=== PATIENT | female | born 1955 | race Caucasian/White ===

== ENCOUNTER → 2017-05-06 | Outpatient (CLI) | payer OTHER ==
[2017-05-06 15:02] LABS: Blood Urea Nitrogen 11 mg/dL (7-17); Non-African American GFR(MDRD) >60 (>60 ml/min/1.73 sqM)
--- NOTE | 2017-05-06 16:11 | CT ---
EXAMINATION TYPE: CT angio thoracic/abd aorta DATE OF EXAM: 05/06/2017 COMPARISON: Previous exam 05/19/2016 HISTORY: Follow-up aneurysm. History of stent. CT DLP: 1075.90 mGycm. Automated Exposure Control for Dose Reduction was Utilized. CONTRAST: CT scan of the thorax, abdomen and pelvis is performed without and with IV Contrast, patient injected with 100 mL of Omnipaque 350. Three-dimensional reconstructions performed on an alternate workstatio n. FINDINGS: LUNGS: The lungs are grossly clear, there is no concerning parenchymal mass or nodule identified. Em physematous changes are again noted within the lungs. There is no pleural effusion or pneumothorax se en. The tracheobronchial tree is patent. MEDIASTINUM: There are no greater than 1 cm hilar or mediastinal lymph nodes. No pericardial effusi on is seen. Pulmonary artery is markedly dilated as on previous exam measuring approximately 5.2 cm in greatest transverse dimension. The aortic stent is in place, there is no evident aneurysm in the a scending aorta. Descending aorta measures approximately 3.9 cm in its proximal aspect similar to prev ious exam. Supraaortic branch vessels are patent. At the level of the distal aspect of the stent near the aortic hiatus, the aorta measures approximately 3.9 cm which may be slightly increased by approx imately 4 mm. No evident aneurysm within the abdomen. Mesenteric vessels, renal arteries, common caryn c arteries are patent. Internal and external iliac, deep femoral, proximal superficial and common fem oral arteries are patent. OTHER: No significant interval change IMPRESSION: There may be some slight interval growth of the aortic diameter at the level of the aorti c hiatus as described.
== END | disposition home or self-care (01) ==
LOC: RADCTMAIN 14:29
PROVIDERS: ATTEND Internal Medicine Cardiovascular Disease
DX: I71.2 Thoracic aortic aneurysm, without rupture (principal)
CPT/HCPCS: 82565; 84520; 75635; 71275; 36415; Q9967

== ENCOUNTER 2019-05-16 15:54 | Emergency (ER) | payer OTHER ==
[2019-05-16 16:08] VITALS: BP 135/85; PULSE 79; RESP 18; TEMP 97.8
--- NOTE | 2019-05-16 16:28 | ED ---
Lower Extremity Injury HPI - General Chief Complaint: Extremity Injury, Lower Stated Complaint: rt foot pain Time Seen by Provider: 05/16/19 16:15 Source: patient, RN notes reviewed Mode of arrival: ambulatory Limitations: no limitations - History of Present Illness Initial Comments: 63-year-old female presents emergency Department with chief complaint of right foot pain. Patient states she woke up Thursday morning felt that she stepped on something. Patient had pain at her second digit. Patient states that she's had increase in swelling or redness that it pertains her first second third digit along with the area just proximal to her digits. Patient states that she's never had any like this in the past patient has no history of gout. Patient denies any trauma denies being diabetic no fevers or chills. Patient states it is painful between her first and second digit. - Related Data Home Medications Medication Instructions Recorded Confirmed ARIPiprazole [Abilify] 5 mg PO DAILY 05/16/19 05/16/19 Lisinopril [Zestril] 10 mg PO DAILY 05/16/19 05/16/19 Previous Rx's Medication Instructions Recorded Cephalexin [Keflex] 500 mg PO Q6HR #40 cap 05/16/19 Allergies Allergy/AdvReac Type Severity Reaction Status Date / Time No Known Allergies Allergy Verified 05/16/19 16:08 Review of Systems ROS Statement: Those systems with pertinent positive or pertinent negative responses have been documented in the HPI. ROS Other: All systems not noted in ROS Statement are negative. Past Medical History Past Medical History: Hypertension Additional Past Medical History / Comment(s): Sent in aorta History of Any Multi-Drug Resistant Organisms: None Reported Past Surgical History: Adenoidectomy, Cholecystectomy, Tubal Ligation Past Psychological History: Depression Smoking Status: Current every day smoker Past Alcohol Use History: Occasional Past Drug Use History: None Reported General Exam Limitations: no limitations General appearance: alert, in no apparent distress Head exam: Present: atraumatic, normocephalic, normal inspection Respiratory exam: Present: normal lung sounds bilaterally. Absent: respiratory distress, wheezes, rales, rhonchi, stridor Cardiovascular Exam: Present: regular rate, normal rhythm, normal heart sounds. Absent: systolic murmur, diastolic murmur, rubs, gallop, clicks Extremities exam: Present: other (Right foot there is erythema just proximal digits 1 through 3 with erythema mostly pertaining to the second and third digit there is tenderness of this area also equal bilaterally no proximal foot tenderness) Neurological exam: Present: alert Skin exam: Present: warm, dry, intact Course Vital Signs 05/16/19 16:04 Temperature 97.8 F Pulse Rate 79 Respiratory 18 Rate Blood Pressure 135/85 O2 Sat by Pulse 98 Oximetry Medical Decision Making - Medical Decision Making 63-year-old female presented emergency apartment for right foot pain and swelling. Patient has no evidence of fracture there is no open wounds or sores other areas erythematous and warm to touch. This is consistent with cellulitis. Patient has no history gout. Patient will be started on Keflex with close follow-up in 24 hours return for any worsening symptoms. Disposition Clinical Impression: Cellulitis of right foot Disposition: HOME SELF-CARE Condition: Stable Instructions (If sedation given, give patient instructions): Cellulitis (ED) Additional Instructions: Please return to the Emergency Department if symptoms worsen or any other concerns. Prescriptions: Cephalexin [Keflex] 500 mg PO Q6HR #40 cap Is patient prescribed a controlled substance at d/c from ED?: No Referrals: Jerel Mendez MD [Primary Care Provider] - 1-2 days Time of Disposition: 16:53
--- NOTE | 2019-05-16 16:43 | XR ---
EXAMINATION TYPE: XR foot complete RT DATE OF EXAM: 05/16/2019 COMPARISON: NONE HISTORY: Foot pain TECHNIQUE: 3 views FINDINGS: I see no acute fracture nor dislocation. I see no focal bone destruction. There is some sof t tissue swelling of the forefoot. IMPRESSION: Forefoot soft tissue swelling. No fracture. No specific sign of osteomyelitis.
[2019-05-16] MEDS ORDERED: ACET/COD 300 MG/30 MG STARTER PACK 6 TAB BTL PO STA (16:53)
== END 2019-05-16 17:03 | disposition home or self-care (01) ==
LOC: EC 15:54
DX: L03.115 Cellulitis of right lower limb (principal); I10 Essential (primary) hypertension; F32.9 Major depressive disorder, single episode, unspecified; F17.200 Nicotine dependence, unspecified, uncomplicated; Z79.899 Other long term (current) drug therapy
CPT/HCPCS: 99283

== ENCOUNTER → 2019-08-20 | Outpatient (CLI) | payer OTHER | END | disposition home or self-care (01) | LOC: RADCTMAIN 10:44 | PROVIDERS: ATTEND Family Medicine | DX: Z53.9 Procedure and treatment not carried out, unspecified reason (principal) ==

== ENCOUNTER → 2019-08-22 | Outpatient (CLI) | payer OTHER ==
--- NOTE | 2019-08-23 06:58 | CT ---
EXAMINATION TYPE: CT angio chest DATE OF EXAM: 08/22/2019 COMPARISON: CTA May 06, 2017 and older studies. HISTORY: chest pain follow up stents CT DLP: 1293 mGycm. Automated Exposure Control for Dose Reduction was Utilized. CONTRAST: CTA scan of the thorax is performed with IV Contrast, patient injected with 100 mL of Isovue 370, pul monary embolism protocol. Three-D reconstructed images are created on a independent workstation and r eviewed. FINDINGS: LUNGS: Bilateral mild to moderate underlying emphysematous change with [id number] parenchymal f ibrotic changes in the lung bases. No suspicious acute groundglass opacity or consolidation. No pleur al effusion or pneumothorax. Tracheobronchial tree is patent. MEDIASTINUM: There is satisfactory enhancement of dilated central pulmonary arteries. There is stent graft beginning at level of the aortic arch shortly after left subclavian takeoff extending almost to the level of diaphragmatic hiatus through ectatic and aneurysmal descending thoracic aorta. Ascendin g aorta measures up to 3.8 cm in diameter. There is good filling or patency of stent graft without lira spicious extraluminal enhancement. There are more prominent but subcentimeter scattered mediastinal l ymph nodes which is nonspecific. For reference right tracheobronchial lymph node measures 10 x 9 mm a xial image 25. Stable calcified subcarinal lymph nodes. No cardiomegaly or pericardial effusion is s een. Mild to moderate biatrial dilatation remains present. OTHER: No additional significant abnormality is seen. IMPRESSION: Persistent massively enlarged pulmonary arteries. Persistent patent stent graft through 3 .9 cm aneurysm of the descending aorta. Background chronic parenchymal change without acute pulmonary process. No significant change from most recent CT.
== END | disposition home or self-care (01) ==
LOC: RADCTMAIN 16:56
PROVIDERS: ATTEND Family Medicine
DX: I25.10 Atherosclerotic heart disease of native coronary artery without angina pectoris (principal)
CPT/HCPCS: 71275; Q9967

== ENCOUNTER → 2019-09-13 | Outpatient (CLI) | payer OTHER ==
--- NOTE | 2019-09-14 11:00 | ECHOF ---
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 This was a technically good study. LV size, wall thickness and systolic function are normal, with an EF greater than 55%. The left liz tricular size is normal. Overall left ventricular systolic function is normal with, an EF between 5 5 - 60 %. The right ventricle is normal in size. The left atrium is moderately dilated. LA is moderately dilated 34-39 ml/m2 The right atrial size is normal. There is mild aortic valve sclerosis. There is no evidence of aortic regurgitation. Mild mitral annular calcification present. Mild mitral regurgitation is present. Mild tricuspid regurgitation present. Right ventricular systolic pressure is normal at < 35 mmHg. There is no evidence of pulmonary hypertension. Moderate pulmonic regurgitation. Pulmonary Artery Dilatation measures 5.6cm. The aortic root size is normal. There is no pericardial effusion. CONCLUSIONS -------- 1. Sinus rhythm. 2. This was a technically good study. 3. LV size, wall thickness and systolic function are normal, with an EF greater than 55%. 4. The left ventricular size is normal. 5. Overall left ventricular systolic function is normal with, an EF between 55 - 60 %. 6. The right ventricle is normal in size. 7. The left atrium is moderately dilated. 8. LA is moderately dilated 34-39 ml/m2 9. The right atrial size is normal. 10. There is mild aortic valve sclerosis. 11. There is no evidence of aortic regurgitation. 12. Mild mitral annular calcification present. 13. Mild mitral regurgitation is present. 14. Mild tricuspid regurgitation present. 15. Right ventricular systolic pressure is normal at < 35 mmHg. 16. There is no evidence of pulmonary hypertension. 17. Moderate pulmonic regurgitation. 18. Pulmonary Artery Dilatation measures 5.6cm. 19. The aortic root size is normal. 20. There is no pericardial effusion. GEAR INSPECTOR: Sybil Agudelo RDCS
== END | disposition home or self-care (01) ==
LOC: RADECHMAIN 16:22
PROVIDERS: ATTEND Family Medicine
DX: I08.3 Combined rheumatic disorders of mitral, aortic and tricuspid valves (principal); I28.1 Aneurysm of pulmonary artery
CPT/HCPCS: 93306

== ENCOUNTER → 2020-10-04 | Outpatient (CLI) | payer OTHER ==
--- NOTE | 2020-10-04 15:49 | BD ---
EXAMINATION TYPE: Axial Bone Density DATE OF EXAM: 10/04/2020 COMPARISON: NONE CLINICAL HISTORY: 65 YR OLD FEMALE.....ICD-10 CODE: M85.80 DISORDER OF BONE Height: 65 Weight: 186 FRAX RISK QUESTIONS: Glucocorticoids (More than 3mos): YES (Ex: prednisone, prednisolone, methylprednisolone, dexamethasone, and hydrocortisone). Current Tobacco Use: YES RISK FACTORS HISTORY OF: Postmenopausal woman: YES, 54 YR OLD Hyperparathyroidism: NO Adrenal Insufficiency: NO MEDICATIONS: Prednisone or other steroids: YES, FOR COPD, YES, FOR SINUSES PREDNISONE. How Long: FOR MANY YRS Additional Medications: BP MEDS, FETIZMA, STATIN FOR CHOLESTEROL, VIT D Additional History: HYPERTENSION, CHOLESTEROL, EXAM MEASUREMENTS: Bone mineral densitometry was performed using the [employer] System. Bone mineral density as measured about the Lumbar spine is: ----- L1-L4(G/cm2): 1.150 T Score Values are as follows: ----- L1: -0.7 ----- L2: -1.2 ----- L3: 0.7 ----- L4: -0.1 ----- L1-L4: -0.2 Bone mineral density FIRST DEXA STUDY AT [facility] Bone mineral density about the R hip (g/cm2): 0.929 Bone mineral density about the L hip (g/cm2): 0.875 T Score values are as follows: -----R Neck: -0.8 -----L Neck: -1.0 -----R Total: -0.6 -----L Total: -1.1 Bone mineral density FIRST DEXA AT [facility] FRAX%s: THERE IS A 11.9% CHANCE FOR A MAJOR OSTEOPOROTIC FX AND A 1.6% FOR HIP........PROBABILITY F OR FX IN 10 YRS TIME IMPRESSION: Osteopenia (T Score between -2.5 and -1). There is slightly increased risk of fracture and the patient may be considered for treatment. Re-Screen 2-5 years. NOTE: T-SCORE=SD OF THE YOUNG ADULT MEAN.
== END | disposition home or self-care (01) ==
LOC: RADBDWWP 09:15
PROVIDERS: ATTEND Family Medicine
DX: M85.80 Other specified disorders of bone density and structure, unspecified site (principal)
CPT/HCPCS: 77080

== ENCOUNTER → 2020-11-22 | Outpatient (CLI) | payer OTHER ==
--- NOTE | 2020-11-23 11:13 | MM ---
Reason for exam: screening (asymptomatic). Last mammogram was performed 9 years and 8 months ago. History: Patient is postmenopausal. Physical Findings: A clinical breast exam by your physician is recommended on an annual basis and results should be correlated with mammographic findings. MG Screening Mammo w CAD Bilateral CC and MLO view(s) were taken. Prior study comparison: March 17, 2011, bilateral digital screening mammo w/CAD. There are scattered fibroglandular densities. There is no discrete abnormality. No significant changes when compared with prior studies. ASSESSMENT: Negative, BI-RAD 1 RECOMMENDATION: Routine screening mammogram of both breasts in 1 year.
== END | disposition home or self-care (01) ==
LOC: RADMAMWWP 07:24
PROVIDERS: ATTEND Family Medicine
DX: Z12.31 Encounter for screening mammogram for malignant neoplasm of breast (principal); Z78.0 Asymptomatic menopausal state
CPT/HCPCS: 77067

== ENCOUNTER → 2022-06-24 | Outpatient (CLI) | payer MEDICARE, OTHER ==
--- NOTE | 2022-06-24 08:55 | US ---
EXAMINATION TYPE: US carotid duplex BILAT DATE OF EXAM: 06/24/2022 COMPARISON: NONE CLINICAL HISTORY: R09.89 SYMPTOMS INVOLVING CIRCULATORY SYSTEMS. No h/o stroke, COPD, memory loss, h/ o AAA TECHNIQUE: Carotid duplex ultrasound examination. Indirect Doppler criteria was utilized. FINDINGS: EXAM MEASUREMENTS: RIGHT: Peak Systolic Velocity (PSV) cm/sec ----- Right CCA: 86.1 ----- Right ICA: 84.9 ----- Right ECA: 97.6 ICA/CCA ratio: 1.0 RIGHT: End Diastole cm/sec ----- Right CCA: 15.5 ----- Right ICA: 24.1 ----- Right ECA: 13.8 LEFT: Peak Systolic Velocity (PSV) cm/sec ----- Left CCA: 63.1 ----- Left ICA: 98.7 ----- Left ECA: 115 ICA/CCA ratio: 1.6 LEFT: End Diastole cm/sec ----- Left CCA: 13.8 ----- Left ICA: 32.1 ----- Left ECA: 11.0 VERTEBRALS (direction of flow): Right Vertebral: Antegrade Left Vertebral: Antegrade Rhythm: Normal [employer] NOTES: Mild homogeneous plaque with no significant stenosis seen IMPRESSION: No ultrasound evidence of hemodynamically significant stenosis of the internal carotid arteries. Criteria for Assigning % of Stenosis / Diameter reduction (Estimation based on the indirect measurements of the internal carotid artery velocities (ICA PSV). 1. Normal (no stenosis)=ICA PSV < 125 cm/s: ratio < 2.0: ICA EDV<40 cm/s. 2. Less than 50% stenosis=ICA PSV < 125 cm/s: ratio < 2.0: ICA EDV<40 cm/s. 3. 50 to 69% stenosis=ICA PSV of 125 to 230 cm/s: ration 2.0 ? 4.0: ICA EDV 40-100 cm/s. 4. Greater than 70% stenosis to near occlusion= ICA PSV > 230 cm/s: ratio > 4.0: ICA EDV > 100 cm/s. 5. Near occlusion= ICA PSV velocities may be low or undetectable: variable ratio and ICA EDV. 6. Total occlusion=unable to detect flow.
--- NOTE | 2022-06-24 18:56 | MM ---
Reason for Exam: Screening (asymptomatic). Last mammogram was performed 1 year(s) and 7 month(s) ago. Patient History: Menarche at age 13. First Full-Term at age 18. Right ovary removed at age 35. Postmenopausal. Risk Values: Demi 5 year model risk: 1.2%. NCI Lifetime model risk: 4.6%. Prior Study Comparison: 12/10/2001 Bilateral Diagnostic Mammogram, [place]. 03/17/2011 Bilateral Screening Mammogram, [facility]. 11/22/2020 Bilateral Screening Mammogram, [facility]. Tissue Density: There are scattered fibroglandular densities. Findings: Analyzed By CAD. Unchanged small asymmetric density lateral left CC view at anterior depth. No significant change from prior exams. Overall Assessment: Benign, BI-RAD 2 Management: Screening Mammogram of both breasts in 1 year. 1. Patient should continue monthly self breast exams. 2. A clinical breast exam by your physician is recommended on an annual basis. 3. This exam should not preclude additional follow-up of suspicious palpable abnormalities. Electronically signed and approved by: Gentry Hassan M.D. Radiologist
== END | disposition home or self-care (01) ==
LOC: RADMAMWWP 06:55
PROVIDERS: ATTEND Family Medicine
DX: Z12.31 Encounter for screening mammogram for malignant neoplasm of breast (principal); R09.89 Other specified symptoms and signs involving the circulatory and respiratory systems; Z78.0 Asymptomatic menopausal state
CPT/HCPCS: 77063; 77067; 93880

== ENCOUNTER → 2022-12-03 | Outpatient (CLI) | payer MEDICARE, OTHER ==
[2022-12-03 10:58] LABS: African American GFR (CKD) >90 (>60 ml/min/1.73 sqM); Blood Urea Nitrogen 17 mg/dL (7-17); Non-African American GFR(CKD) 86 (>60 ml/min/1.73 sqM)
--- NOTE | 2022-12-03 16:42 | CT ---
EXAMINATION TYPE: CT angio chest DATE OF EXAM: 12/03/2022 COMPARISON: 12/05/2021 HISTORY: f/u anuerysm CT DLP: 1123.8 mGycm, Automated exposure control for dose reduction was used. CONTRAST: Performed injected with 100 mL of Isovue 370. TECHNIQUE: Axial images were obtained at 5 mm thick sections. Reconstructed images are reviewed on Peer[employer] computer in the coronal plane. FINDINGS: Portion of the thyroid visualized is normal. No suspicious lung nodules or focal infiltrates are present. No enlarged mediastinal or hilar adenopathy is evident. The ascending aorta diameter at the level o f the main pulmonary artery is 3.4 cm. The descending thoracic aorta is stented. No dissection is id entified. The main pulmonary artery diameter at the bifurcation is 5.9 cm. Findings compatible with pulmonary h ypertension. Limited CT sections are obtained through the upper abdomen. Abdomen is essentially unremarkable. IMPRESSIONS: 1. Pulmonary hypertension. 2. Stented descending thoracic aorta.
== END | disposition home or self-care (01) ==
LOC: RADCTMAIN 10:02
PROVIDERS: ATTEND Surgery
DX: I71.23 Aneurysm of the descending thoracic aorta, without rupture (principal); I27.20 Pulmonary hypertension, unspecified
CPT/HCPCS: 82565; 84520; 71275; 36415; Q9967

== ENCOUNTER → 2023-08-06 | Outpatient (CLI) | payer MEDICARE, OTHER ==
[2023-08-07 02:56] LABS: ALT 16 U/L (8-44); AST 17 U/L (13-35); Albumin 3.8 g/dL (3.8-4.9); Albumin/Globulin Ratio 1.36 Ratio (1.60-3.17); Alkaline Phosphatase 165 U/L (41-126); BUN/Creat Ratio 15.12 Ratio (12.00-20.00); Blood Urea Nitrogen 12.1 mg/dL (9.0-27.0); Calcium 10.4 mg/dL (8.7-10.3); Carbon Dioxide 26.2 mmol/L (21.6-31.8); Chloride 102 mmol/L (96-109); Globulin 2.8 g/dL (1.6-3.3); Glucose 86 mg/dL (70-110); Potassium 4.1 mmol/L (3.5-5.5); Sodium 140 mmol/L (135-145); Total Bilirubin 0.2 mg/dL (0.3-1.2); Total Protein 6.6 g/dL (6.2-8.2)
== END | disposition home or self-care (01) ==
LOC: LABWHC1 12:30
PROVIDERS: ATTEND Internal Medicine Endocrinology, Diabetes & Metabolism
DX: E21.0 Primary hyperparathyroidism (principal)
CPT/HCPCS: 36415; 80053; 82306; 83970

== ENCOUNTER → 2023-10-14 | Outpatient (CLI) | payer MEDICARE, OTHER ==
[2023-10-15 05:24] LABS: Calcium 24 Hour,Urine 111.6 mg/24Hr (100.0-300.0)
== END | disposition home or self-care (01) ==
LOC: LABWHC1 12:28
PROVIDERS: ATTEND Internal Medicine Endocrinology, Diabetes & Metabolism
DX: E21.0 Primary hyperparathyroidism (principal)
CPT/HCPCS: 81050; 82340

== ENCOUNTER → 2024-01-26 | Outpatient (CLI) | payer MEDICARE, OTHER ==
[2024-01-26 15:00] LABS: African American GFR (CKD) 88 (>60 ml/min/1.73 sqM); Blood Urea Nitrogen 19 mg/dL (7-17); Non-African American GFR(CKD) 77 (>60 ml/min/1.73 sqM)
--- NOTE | 2024-02-09 12:55 | CT ---
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 Coronal/sagittal MIP reconstructions performed. 3-D reconstructions generated on a [employer] independent workstation. CT DLP: 731.7mGycm. Automatic exposure control utilized for a dose reduction. FINDINGS: Heart upper limits of normal in size without pericardial effusion. Aortic root normal caliber 3.3 cm. Ascending aorta borderline ectatic at 3.6 cm, unchanged. Endovascular aortic stent graft of the arch and descending thoracic aorta with landing zone just beyo nd the takeoff of the left subclavian artery. Great vessel origins are patent. Distal arch aneurysmal at 4.5 cm, unchanged. The portion of the vessel outside of the stent graft lula sures 1.0 cm, also unchanged. Upper descending thoracic aorta aneurysmal at 4.1 cm versus 4.2 cm, previously. Mid descending thoracic aorta aneurysmal at 3.8 cm, unchanged. Distal descending thoracic aorta aneurysmal at 3.6 cm, unchanged. Similar intraluminal positioning of the left lateral stent graft landing zone distally in the descend ing thoracic aorta with some undercutting contrast extending between the aortic wall and stent graft, refer to coronal series 15 image 80. Severe dilatation main pulmonary outflow tract. Dilatation of the main right and left pulmonary arter ies up to 4.1 cm suggesting pulmonary hypertension. No thoracic lymphadenopathy by CT size criteria. Calcified subcarinal lymph node compatible with prio r granulomatous disease. Moderate emphysematous change. Mild biapical pleural-parenchymal scarring. Some additional strandy sc arring and atelectasis in the lower lungs. No consolidation or pleural effusion. Visualized upper abdomen shows no gross abnormality. Bones: No osseous destructive process. IMPRESSION: 1. Endovascular aortic stent graft of the distal arch and descending thoracic aorta with proximal heather ding zone just beyond the takeoff of the left subclavian artery. 2. Stable buckland sac caliber at the distal arch of 4.5 cm. Stable caliber to the remainder of the jimena cending thoracic aorta measuring up to 4.1 cm. 3. Stable configuration to the left lateral distal landing zone, projecting into the aortic lumen and away from the aortic wall. 4. COPD with moderate emphysema. There is severe dilatation of the main pulmonary outflow tract and s evere enlargement of the bilateral pulmonary arteries up to 4.1 cm. There may be marked pulmonary art erial hypertension and consider pulmonary medicine referral if indicated.
== END | disposition home or self-care (01) ==
LOC: RADCTMAIN 14:10
PROVIDERS: ATTEND Family Medicine
DX: J44.9 Chronic obstructive pulmonary disease, unspecified (principal); I71.20 Thoracic aortic aneurysm, without rupture, unspecified; I10 Essential (primary) hypertension; J43.9 Emphysema, unspecified; Z95.828 Presence of other vascular implants and grafts
CPT/HCPCS: 82565; 84520; 71275; 36415; Q9967

== ENCOUNTER → 2024-07-07 | Outpatient (CLI) | payer MEDICARE, OTHER | END | disposition home or self-care (01) | LOC: LABWHC1 13:31 | PROVIDERS: ATTEND Family Medicine | DX: E83.52 Hypercalcemia (principal); R74.8 Abnormal levels of other serum enzymes | CPT/HCPCS: 36415; 83970 ==

== ENCOUNTER → 2024-12-23 | Outpatient (CLI) | payer MEDICARE ==
--- NOTE | 2024-12-24 12:52 | MR ---
EXAMINATION TYPE: MR thoracic spine wo con DATE OF EXAM: 12/23/2024 8:24 PM COMPARISON: None. CLINICAL INDICATION: Female, 69 years old with history of M54.6 PAIN IN THORACIC SPINE, Mid back pain in center and left side for 2-3 months TECHNIQUE: Multiplanar MultiSpin echo imaging of the thoracic spine was performed. FINDINGS: Disc spaces: No evidence for herniation protrusion. No evidence for central stenosis. Moderate multil evel degenerative disc space narrowing and spondylosis. Mild posterior disc bulge extending from T7 t hrough T12-L1. Spinal canal: No evidence for canal stenosis. No intrinsic or extrinsic lesion. Thoracic spinal cord: Thoracic spinal cord is of normal caliber and signal. Paraspinal soft tissues: No evidence for paraspinal mass. No destructive lesions seen. Vertebral segments: No evidence for fracture or bony lesion. IMPRESSION: Multilevel degenerative disc disease and disc bulging without herniation or central stenosis. Ventral spondylosis without evidence for fracture or osseous lesion. [facility], , 12/24/2024 12:49 PM
== END | disposition home or self-care (01) ==
LOC: RADMRIMAIN 19:45
PROVIDERS: ATTEND Family Medicine
DX: M51.34 Other intervertebral disc degeneration, thoracic region (principal); M51.24 Other intervertebral disc displacement, thoracic region; M47.814 Spondylosis without myelopathy or radiculopathy, thoracic region
CPT/HCPCS: 72146

== ENCOUNTER → 2025-01-10 | Outpatient (CLI) | payer MEDICARE ==
[2025-01-10 09:54] VITALS: BP 101/68; PULSE 100; RESP 16; TEMP 97
--- NOTE | 2025-01-10 15:09 | P.PAINPG ---
PQRS Measure Charge Sheet Comment: HISTORY OF PRESENT ILLNESS: A 69 yr old female as a referral from Dr Mendez presents today w severe and chronic mid back pain x 1 yr secondary to radiculopathy, spondylosis and facet arthropathy without myelopathy for evaluation. Pt states pain level is provoked at 6 /10 in intensity, constant, localized in the L thoracic spine, predominantly axial, throbbing in character w occasional shooting pain towards the flanks. Pain is provoked by lifting. Pain is alleviated by medications, heat, ice, manual massage, repositioning and rest . Oswestry axial pain score at 27. PMH: OA, HTN, Hyperparathyroidism, Vitamin D Deficiency, OP, MDD PSH: Adenoidectomy, Cholecystectomy, Partial Thyroidectomy (2018), Aortic Stent (2014), Tubal Ligation SH: Daily tobacco use, Occ ETOH use, No illicit drug use FH: Non contributory All: See list Medications include Tramadol, Ibu, ASA REVIEW OF ORGAN SYSTEMS: CONSTITUTIONAL: No fevers or chills. No recent weight loss. NEUROLOGICAL: + numbness and tingling along the distal extremities. No seizure disorders or headaches. MUSCULOSKELETAL: + pain PSYCHIATRIC: Denies current depression or suicidal thoughts. Physical Examinations : Constitutional : Cooperative , not in acute distress . Neurologic : Cranial nerve II to XII intact. No focal neurological deficits. Psychiatric : alert & oriented x 3. Matching mood & appropriate affect. Judgment & insight intact. Musculoskeletal : Cervical Spine Motor strength in the deltoid and biceps: Normal right side. Normal Left side Motor strength biceps and the wrist extensors: Normal right side . Normal left side Motor strength in the triceps muscle: N ormal right side. Normal left side Deep tendon reflexes: Normal at the biceps. Normal at Brachioradialis. Normal at triceps Vertebral body tenderness to deep palpation over Cervical facet loading test: positive bilaterally Spurling test: positive bilaterally Neck distraction test: positive bilaterally Oriana sign: positive bilaterally Lumbar spine Motor strength lower extremities ,thigh and legs 5/5 Right side , 5/5 Left side Deep tendon reflexes : Normal Knee Jerk. Normal Ankle Jerk Vertebral body tenderness over T8, T10, L3-L5 Butler Test positive Lumbar facet Loading Test: positive Right / positive Left Range of motion of the lumbar spine Flexion 30 degrees, extension 10 degrees Straight Leg Raise test: Left/ Right positive at degrees Omari test: positive right / positive left. Severe tenderness over the Sacroiliac joint on the Right / Left sides Gaenslen test: positive bilaterally Seated flexion test: positive bilaterally. Sacral spine : Severe tenderness over the Sacroiliac joint: right side / left side Range of motion: Flexion of the lumbar spine <60 degrees Range of motion: Extension of the lumbar spine <20 degrees Gaenslen's Test positive Omari test: positive right side / left side Thigh Thrust Test Sacral Thrust Test Imaging: MRI non contrast thoracic spine from 12/23/24 reviewed Assessment/ Plan : T7-L1 radiculopathy Recommendation of PT x 6 wks M54.14/ M54.16. Script currently in possession. RAll questions answered. I have spent greater than 30 minutes on patient care today. Dr Scott was available by phone for the evaluation of this patient. The time was used to review the medical records including relevant urine studies and Prescription history (MAPs), review of the available imaging, evaluation and examination of the patient, coordination of care with the medical staff and if applicable referring physicians, as well as creation of the medical record - Pain Location Left Upper Back Non-Pharmacological Interventions: Position/Reposition, Relaxation Technique Pharmacological Interventions: PRN Medication PQRS Narrative: Smoking Status Current every day smoker Home Medications: Ambulatory Orders ARIPiprazole [Abilify] 5 mg PO DAILY 05/16/19 lisinopriL [Zestril] 10 mg PO DAILY 05/16/19 Atorvastatin Calcium 20 mg PO DAILY 01/10/25 Budesonide-Formot 160-4.5 Mcg [Symbicort 160-4.5 Mcg Inhaler] 2 puff INHALATION BID 01/10/25 HYDROcodone/APAP 5-325MG [Comstock 5-325] 1 tab PO Q4HR PRN 3 Days #18 tab 01/10/25 Metoprolol Succinate (ER) [Toprol Xl] 25 mg PO DAILY 01/10/25 Omeprazole Magnesium [PriLOSEC OTC] 20 mg PO DAILY 01/10/25 Controlled Substance Measures - Controlled Substance Measures Is patient prescribed a controlled substance at discharge?: Yes When asked, does pt state using other controlled substances?: Yes If prescribed controlled substance>3 days was MAPS reviewed?: Prescribed <3 Days
== END ==
LOC: PNWHC3 09:29
PROVIDERS: ATTEND Specialist
DX: M47.25 Other spondylosis with radiculopathy, thoracolumbar region (principal); F17.200 Nicotine dependence, unspecified, uncomplicated; Z88.1 Allergy status to other antibiotic agents
CPT/HCPCS: 99211

== ENCOUNTER → 2025-03-22 | Outpatient (CLI) | payer MEDICARE ==
--- NOTE | 2025-03-22 14:37 | US ---
EXAMINATION TYPE: US carotid duplex BILAT DATE OF EXAM: 03/22/2025 COMPARISON: 06/24/2022 CLINICAL INDICATION: Female, 69 years old with history of R09.89 SYMPTOMS AND SIGNS INVOLVING CIRCULA TORY; Hx HTN and patient is a smoker; dizziness and weakness TECHNIQUE: Grayscale, color Doppler and spectral Doppler evaluation of the bilateral carotid systems and vertebral arteries. Indirect Doppler criteria was utilized. FINDINGS: EXAM MEASUREMENTS: RIGHT: Peak Systolic Velocity (PSV) cm/sec ----- Right CCA: 62 ----- Right ICA: 73 ----- Right ECA: 104 ICA/CCA ratio: 1.2 RIGHT: End Diastole cm/sec ----- Right CCA: 14 ----- Right ICA: 21 ----- Right ECA: 13 LEFT: Peak Systolic Velocity (PSV) cm/sec ----- Left CCA: 57 ----- Left ICA: 80 ----- Left ECA: 105 ICA/CCA ratio: 1.4 LEFT: End Diastole cm/sec ----- Left CCA: 14 ----- Left ICA: 25 ----- Left ECA: 17 VERTEBRALS (direction of flow): Right Vertebral: Antegrade Left Vertebral: Antegrade Rhythm: Normal TENANT RELATIONS COORDINATOR NOTES: No intimal thickening or elevated velocities seen. Minimal plaque noted left ICA. Color Doppler imaging shows patency with blood flow throughout the carotid artery. Spectral waveforms are within normal limits. IMPRESSION: No hemodynamically significant internal carotid artery stenosis on either side. Criteria for Assigning % of Stenosis / Diameter reduction (Estimation based on the indirect measurements of the internal carotid artery velocities (ICA PSV). 1. Normal (no stenosis)=ICA PSV < 180 cm/s: ratio < 2.0: ICA EDV<40 cm/s. 2. Less than 50% stenosis=ICA PSV < 180 cm/s: ratio < 2.0: ICA EDV<40 cm/s. 3. 50 to 69% stenosis=ICA PSV of 180 to 230 cm/s: ration 2.0 ? 4.0: ICA EDV 40-100 cm/s. PSV 125-180 cm/sec and ICA/CCA PSV Ratio ? 2.0 is also consistent with 50-69% stenosis 4. Greater than 70% stenosis to near occlusion= ICA PSV > 230 cm/s: ratio > 4.0: ICA EDV > 100 cm/s. 5. Near occlusion= ICA PSV velocities may be low or undetectable: variable ratio and ICA EDV. 6. Total occlusion=unable to detect flow. [facility], , 03/22/2025 2:34 PM
--- NOTE | 2025-03-22 15:50 | MM ---
Reason for Exam: Screening (asymptomatic). Last mammogram was performed 2 year(s) and 9 month(s) ago. Patient History: Menarche at age 13. First Full-Term at age 18. Right ovary removed at age 35. Postmenopausal. Risk Values: Demi 5 year model risk: 1.2%. NCI Lifetime model risk: 4.0%. Prior Study Comparison: 03/17/2011 Bilateral Screening Mammogram, [facility]. 11/22/2020 Bilateral Screening Mammogram, [facility]. 06/24/2022 Bilateral MG 3D screening mammo w/cad, [facility]. Tissue Density: The breasts are almost entirely fatty. Findings: Analyzed By CAD. Right breast: There is no suspicious group of microcalcifications or new suspicious mass. Left breast: There is no suspicious group of microcalcifications or new suspicious mass. Overall Assessment: Negative, BI-RAD 1 Management: Screening Mammogram of both breasts in [address] [facility] will attempt to contact patient to return for supplemental views and ultrasound if indicated. Patient should continue monthly self-breast exams. A clinical breast exam by your physician is recommended on an annual basis. This exam should not preclude additional follow-up of suspicious palpable abnormalities. Note on Demi scores and lifetime risk: 1. A Demi score greater than 3% is considered moderate risk. If this is the case, consider specialist referral to assess eligibility for a risk reducing agent. 2. If overall lifetime risk for the development of breast cancer is 20% or higher, the patient may qualify for future screening with alternating mammogram and breast MRI. [facility], , 03/22/2025 3:47 PM. Electronically signed and approved by: Theron Fletcher DO
== END | disposition home or self-care (01) ==
LOC: RADMAMWWP 13:54
PROVIDERS: ATTEND Family Medicine
DX: Z12.31 Encounter for screening mammogram for malignant neoplasm of breast (principal); R09.89 Other specified symptoms and signs involving the circulatory and respiratory systems; R92.313 Mammographic fatty tissue density, bilateral breasts; Z78.0 Asymptomatic menopausal state
CPT/HCPCS: 77063; 77067; 93880